=== PATIENT | female | born 1980 | race Hispanic/Latino ===

== ENCOUNTER 2019-04-21 02:31 | Emergency (ER) | payer SELFPAY ==
[~2019-04-21] VITALS: Ht 149.9 cm; Wt 61.2 kg
== END 2019-04-21 03:20 | disposition home or self-care (01) ==
LOC: FSED 02:31
DX: L03.012 Cellulitis of left finger (principal); F17.200 Nicotine dependence, unspecified, uncomplicated
CPT/HCPCS: 99282